=== PATIENT | female | born 1955 | race Caucasian/White ===

== ENCOUNTER 2018-01-12 12:09 | Emergency (ER) | payer SELFPAY ==
--- NOTE | 2018-01-12 13:04 | ER ---
Nurse's Notes [facility] Name: Paty Merchant Age: 62 yrs Sex: Female : 1955 Arrival Date: 01/12/2018 Time: 12:13 Bed 14 Private MD: Hema Mays Diagnosis: Insomnia Presentation: 01/12 12:19 Presenting complaint: Patient states: "I just moved here Monday and its been a hard aj1 move and I can't sleep. I have an appointment with a doctor, but its not until the , so until then I need something to sleep". Transition of care: patient was not received from another setting of care. Onset of symptoms was December 2017. Risk Assessment: Do you want to hurt yourself or someone else? Patient reports no desire to harm self or others. Initial Sepsis Screen: Does the patient meet any 2 criteria? No. Patient's initial sepsis screen is negative. Does the patient have a suspected source of infection? No. Patient's initial sepsis screen is negative. Care prior to arrival: None. 12:19 Method Of Arrival: Ambulatory aj1 12:19 Acuity: KIMO 4 aj1 Triage Assessment: 12:21 General: Appears in no apparent distress. comfortable, Behavior is calm, cooperative, aj1 appropriate for age. Pain: Denies pain. Neuro: Level of Consciousness is awake, alert, obeys commands. Cardiovascular: Patient's skin is warm and dry. Respiratory: Airway is patent Respiratory effort is even, unlabored, Respiratory pattern is regular, symmetrical. Historical: - Allergies: 12:21 No Known Allergies; aj1 - Home Meds: 12:21 None [Active]; aj1 - PMHx: 12:21 None; aj1 - PSHx: 12:21 None; aj1 - Immunization history:: Flu vaccine is not up to date. - Social history:: Smoking status: Patient/guardian denies using tobacco. - Ebola Screening: : Patient denies travel to an Ebola-affected area in the 21 days before illness onset. Screenin:31 Abuse screen: Denies threats or abuse. Denies injuries from another. Nutritional hj screening: No deficits noted. Tuberculosis screening: No symptoms or risk factors identified. Fall Risk None identified. Vital Signs: 12:21 BP 127 / 83; Pulse 67; Resp 18; Temp 98.2; Pulse Ox 98% on R/A; Weight 52.16 kg (R); aj1 Height 5 ft. 5 in. (165.10 cm) (R); Pain 0/10; 12:21 Body Mass Index 19.14 (52.16 kg, 165.10 cm) [facility] ED Course: 12:13 Patient arrived in ED. as 12:13 Hema Mays DO is Private Physician. as 12:21 Triage completed. aj1 12:21 Arm band placed on Patient placed in an exam room. aj1 12:24 Murray Altman, RN is Primary Nurse. hj 12:29 Aston Bryan PA is PHCP. [facility] 12:29 Uche Dent MD is Attending Physician. [facility] 12:31 Patient has correct armband on for positive identification. Placed in gown. Bed in low hj position. Call light in reach. Side rails up X 1. 13:15 No provider procedures requiring assistance completed. Patient did not have IV access iw during this emergency room visit. Administered Medications: No medications were administered Outcome: 13:04 Discharge ordered by MD. [facility] 13:15 Discharged to home ambulatory. iw 13:15 Condition: stable 13:15 Discharge instructions given to patient, Instructed on discharge instructions, follow up and referral plans. medication usage, Demonstrated understanding of instructions, follow-up care, medications, Prescriptions given X 1. 13:16 Patient left the ED. iw Signatures: Eliza Dupont, RN RN aj Aston Bryan PA PA jmm Martinez, Amelia as Diamond Keys RN RN Murray Altman RN RN
--- NOTE | 2018-01-12 13:04 | EDPHYS ---
Physician Documentation [facility] Name: Paty Merchant Age: 62 yrs Sex: Female : 1955 Arrival Date: 01/12/2018 Time: 12:13 Bed 14 Private MD: Heam Mays ED Physician Uche Dent HPI: 01/12 12:32 This 62 yrs old Female presents to ER via Ambulatory with complaints of jmm Unable to sleep. 12:32 This is a 62 year old female with a history of restless leg syndrome that presents to [facility] the ED with difficulty sleeping which the patient states has been ongoing for weeks. The patient states she recently moved and has an appointment scheduled with a GP but states she has had no relief with OTC medications. . Historical: - Allergies: 12:21 No Known Allergies; aj1 - Home Meds: 12:21 None [Active]; aj1 - PMHx: 12:21 None; aj1 - PSHx: 12:21 None; aj1 - Immunization history:: Flu vaccine is not up to date. - Social history:: Smoking status: Patient/guardian denies using tobacco. - Ebola Screening: : Patient denies travel to an Ebola-affected area in the 21 days before illness onset. ROS: 12:32 Constitutional: Negative for fever, chills, and weight loss, Cardiovascular: Negative jmm for chest pain, palpitations, and edema, Respiratory: Negative for shortness of breath, cough, wheezing, and pleuritic chest pain, Abdomen/GI: Negative for abdominal pain, nausea, vomiting, diarrhea, and constipation, MS/Extremity: Negative for injury and deformity. 12:32 All other systems are negative. Exam: 12:32 Constitutional: This is a well developed, well nourished patient who is awake, alert, jmm and in no acute distress. Head/Face: atraumatic. Chest/axilla: Normal chest wall appearance and motion. Cardiovascular: Regular rate and rhythm. No edema appreciated Respiratory: Normal respirations, no respiratory distress appreciated 12:32 MS/ Extremity: Moves all extremities, no obvious deformities appreciated, no edema noted to the lower extremities Neuro: Awake and alert, normal gait 12:32 Cardiovascular: Rate: normal, Rhythm: regular. 12:32 Respiratory: the patient does not display signs of respiratory distress, Respirations: normal, Breath sounds: are clear throughout. 12:32 Psych: Behavior/mood is pleasant, cooperative. Vital Signs: 12:21 BP 127 / 83; Pulse 67; Resp 18; Temp 98.2; Pulse Ox 98% on R/A; Weight 52.16 kg (R); aj1 Height 5 ft. 5 in. (165.10 cm) (R); Pain 0/10; 12:21 Body Mass Index 19.14 (52.16 kg, 165.10 cm) aj1 MDM: 12:32 Patient medically screened. [facility] 13:03 Data reviewed: vital signs, nurses notes, lab test result(s). Counseling: I had a celia detailed discussion with the patient and/or guardian regarding: the historical points, exam findings, and any diagnostic results supporting the discharge/admit diagnosis, the need for outpatient follow up, to return to the emergency department if symptoms worsen or persist or if there are any questions or concerns that arise at home. Administered Medications: No medications were administered Disposition: 01/12/18 13:04 Discharged to Home. Impression: Insomnia. - Condition is Stable. - Discharge Instructions: Insomnia. - Prescriptions for Doxepin 25 mg Oral Capsule - take 1 capsule by ORAL route every 8 hours; 14 capsule. - Medication Reconciliation Form, Thank You Letter, Antibiotic Education, Prescription Opioid Use form. - Follow up: Private Physician; When: 2 - 3 days; Reason: Continuance of care. Addendum: 01/15/2018 10:07 Co-signature as Attending Physician, Hema Mays DO I agree with the assessment and c velez plan of care. Signatures: Eliza Dupont RN RN aj1 Uche Dent MD MD cha Mickail, Joel, PA PA jm Diamond Keys RN RN iw Corrections: (The following items were deleted from the chart) 01/12 13:16 13:04 01/12/2018 13:04 Discharged to Home. Impression: Insomnia. Condition is Stable. iw Forms are Medication Reconciliation Form, Thank You Letter, Antibiotic Education, Prescription Opioid Use. Follow up: Private Physician; When: 2 - 3 days; Reason: Continuance of care. celia
== END 2018-01-12 13:16 | disposition home or self-care (01) ==
LOC: ER 12:09
DX: G47.00 Insomnia, unspecified (principal)
CPT/HCPCS: 99282